=== PATIENT | female | born 1985 | race Caucasian/White ===

== ENCOUNTER 2020-04-18 01:54 | Emergency (ER) | payer SELFPAY ==
--- NOTE | 2020-04-18 03:13 | ER ---
Nurse's Notes [facility] Name: Gauri He Age: 35 yrs Sex: Female : 1985 Arrival Date: 04/18/2020 Time: 01:54 Bed 17 Private MD: Diagnosis: Fungal rash ( Chest, right breast, pelvis, buttocks ) Presentation: 04/18 01:54 Chief complaint: EMS states: PT has a rash that has been going on for over a year. has jb4 been advised to see a radiology technician, but reports being unable to afford it. Tonight the pt reports that the itching has gotten worse. 01:54 Coronavirus screen: Client denies travel out of the [place] in the last 14 days. At this jb4 time, the client does not indicate any symptoms associated with coronavirus-19. Ebola Screen: Patient negative for fever greater than or equal to 101.5 degrees Fahrenheit, and additional compatible Ebola Virus Disease symptoms No symptoms or risks identified at this time. Initial Sepsis Screen: Does the patient meet any 2 criteria? No. Patient's initial sepsis screen is negative. Does the patient have a suspected source of infection? No. Patient's initial sepsis screen is negative. Risk Assessment: Do you want to hurt yourself or someone else? Patient reports no desire to harm self or others. Onset of symptoms was May 15, 2018. 01:54 [facility] 01:[facility] Acuity: ALYSSA 4 jb4 Historical: - Allergies: 01:54 No Known Allergies; jb4 - Home Meds: 01:54 Xanax Oral [Active]; jb4 - PMHx: 01:54 Anxiety; jb4 - PSHx: 01:54 ; jb4 - Immunization history:: Adult Immunizations up to date. - Social history:: Smoking status: Patient reports the use of cigarette tobacco products, smokes one pack cigarettes per day. Patient uses street drugs, marijuana, Patient/guardian denies using alcohol. Screenin:54 Abuse screen: Denies threats or abuse. Nutritional screening: No deficits noted. jb4 Tuberculosis screening: No symptoms or risk factors identified. Fall Risk None identified. Assessment: 01:54 General: Appears in no apparent distress. comfortable, Behavior is calm, cooperative, jb4 appropriate for age. Pain: Complains of pain in buttocks Pain does not radiate. Pain currently is 5 out of 10 on a pain scale. Quality of pain is described as burning. Neuro: Level of Consciousness is awake, alert, obeys commands, Oriented to person, place, time, situation. Cardiovascular: Patient's skin is warm and dry. Respiratory: Airway is patent Respiratory effort is even, unlabored, Respiratory pattern is regular, symmetrical. GI: No signs and/or symptoms were reported involving the gastrointestinal system. : No signs and/or symptoms were reported regarding the genitourinary system. EENT: No signs and/or symptoms were reported regarding the EENT system. Derm: Skin is intact, Skin is pink, warm \T\ dry. Rash noted that is itchy, on right breast and pelvis. Musculoskeletal: Circulation, motion, and sensation intact. Range of motion: intact in all extremities. 03:24 Reassessment: Patient appears in no apparent distress at this time. Patient and/or jb4 family updated on plan of care and expected duration. Pain level reassessed. Patient is alert, oriented x 3, equal unlabored respirations, skin warm/dry/pink. Vital Signs: 01:54 BP 104 / 56; Pulse 92; Resp 16; Temp 97.8(O); Pulse Ox 100% on R/A; Weight 66.22 kg jb4 (R); Height 5 ft. 3 in. (160.02 cm); Pain 5/10; 03:24 BP 96 / 68; Pulse 90; Resp 16; Pulse Ox 98% on R/A; jb4 01:54 Body Mass Index 25.86 (66.22 kg, 160.02 cm) jb4 ED Course: 01:54 Patient arrived in ED. cl3 01:54 Patient has correct armband on for positive identification. Bed in low position. Call jb4 light in reach. Side rails up X 1. Pulse ox on. NIBP on. 01:58 Arm band placed on. sg 02:13 Jerman Tran MD is Attending Physician. pkl 02:18 Bobby Dykes, DIPIKA is Primary Nurse. jb4 02:22 Triage completed. jb4 03:24 No provider procedures requiring assistance completed. Patient did not have IV access jb4 during this emergency room visit. Administered Medications: 03:14 Drug: Motrin 600 mg Route: PO; jb4 03:24 Follow up: Response: No adverse reaction jb4 03:15 Drug: Benadryl 50 mg Route: PO; jb4 03:24 Follow up: Response: No adverse reaction jb4 03:15 Drug: Tylenol 650 mg Route: PO; jb4 03:24 Follow up: Response: No adverse reaction jb4 Outcome: 03:13 Discharge ordered by . kiara 03:24 Discharged to home ambulatory. jb4 03:24 Condition: stable 03:24 Discharge instructions given to patient, Instructed on discharge instructions, follow up and referral plans. medication usage, Demonstrated understanding of instructions, follow-up care, medications, Prescriptions given X 1. 03:25 Patient left the ED. jb4 Signatures: Kolby Najera RN RN sg Lam, Pin, MD MD pkl Bryson, James, RN RN jb4 Bharath Jain cl3
--- NOTE | 2020-04-18 03:13 | EDPHYS ---
Physician Documentation [facility] Name: Gauri He Age: 35 yrs Sex: Female : 1985 Arrival Date: 04/18/2020 Time: 01:54 Bed 17 Private MD: ED Physician Jerman Tran HPI: 04/18 03:06 This 39 yrs old Female presents to ER via EMS with complaints of Skin Problem. pkl 03:06 The rash is located on the pelvis and chest and right breast and buttocks. The rash can pkl be described as patchy. Onset: The symptoms/episode began/occurred 6 month(s) ago. Associated signs and symptoms: Pertinent positives: itching. Historical: - Allergies: :54 No Known Allergies; jb4 - Home Meds: :54 Xanax Oral [Active]; jb4 - PMHx: :54 Anxiety; jb4 - PSHx: 01:54 ; jb4 - Immunization history:: Adult Immunizations up to date. - Social history:: Smoking status: Patient reports the use of cigarette tobacco products, smokes one pack cigarettes per day. Patient uses street drugs, marijuana, Patient/guardian denies using alcohol. ROS: 03:06 Eyes: Negative for injury, pain, redness, and discharge, ENT: Negative for injury, pkl pain, and discharge, Neck: Negative for injury, pain, and swelling, Cardiovascular: Negative for chest pain, palpitations, and edema, Respiratory: Negative for shortness of breath, cough, wheezing, and pleuritic chest pain, Abdomen/GI: Negative for abdominal pain, nausea, vomiting, diarrhea, and constipation, Back: Negative for injury and pain, : Negative for injury, bleeding, discharge, and swelling, MS/Extremity: Negative for injury and deformity. 03:06 Skin: Positive for rash, of the pelvis and chest and right breast and buttocks. 03:06 Neuro: Negative for altered mental status, loss of consciousness. Exam: 03:06 Head/Face: Normocephalic, atraumatic. Eyes: Pupils equal round and reactive to light, pkl extra-ocular motions intact. Lids and lashes normal. Conjunctiva and sclera are non-icteric and not injected. Cornea within normal limits. Periorbital areas with no swelling, redness, or edema. ENT: Nares patent. No nasal discharge, no septal abnormalities noted. Tympanic membranes are normal and external auditory canals are clear. Oropharynx with no redness, swelling, or masses, exudates, or evidence of obstruction, uvula midline. Mucous membranes moist. Neck: Trachea midline, no thyromegaly or masses palpated, and no cervical lymphadenopathy. Supple, full range of motion without nuchal rigidity, or vertebral point tenderness. No Meningismus. Chest/axilla: Normal chest wall appearance and motion. Nontender with no deformity. No lesions are appreciated. Cardiovascular: Regular rate and rhythm with a normal S1 and S2. No gallops, murmurs, or rubs. Normal PMI, no JVD. No pulse deficits. Respiratory: Lungs have equal breath sounds bilaterally, clear to auscultation and percussion. No rales, rhonchi or wheezes noted. No increased work of breathing, no retractions or nasal flaring. Abdomen/GI: Soft, non-tender, with normal bowel sounds. No distension or tympany. No guarding or rebound. No evidence of tenderness throughout. Back: No spinal tenderness. No costovertebral tenderness. Full range of motion. MS/ Extremity: Pulses equal, no cyanosis. Neurovascular intact. Full, normal range of motion. Neuro: Awake and alert, GCS 15, oriented to person, place, time, and situation. Cranial nerves II-XII grossly intact. Motor strength 5/5 in all extremities. Sensory grossly intact. Cerebellar exam normal. Normal gait. 03:06 Skin: rash can be described as excoriated, patchy, on the pelvis and chest and right breast and buttocks. Vital Signs: 01:54 BP 104 / 56; Pulse 92; Resp 16; Temp 97.8(O); Pulse Ox 100% on R/A; Weight 66.22 kg jb4 (R); Height 5 ft. 3 in. (160.02 cm); Pain 5/10; 03:24 BP 96 / 68; Pulse 90; Resp 16; Pulse Ox 98% on R/A; jb4 01:54 Body Mass Index 25.86 (66.22 kg, 160.02 cm) jb4 MDM: 02:13 Patient medically screened. pkl 03:06 Data reviewed: vital signs, nurses notes. pkl Administered Medications: 03:14 Drug: Motrin 600 mg Route: PO; jb4 03:24 Follow up: Response: No adverse reaction jb4 03:15 Drug: Benadryl 50 mg Route: PO; jb4 03:24 Follow up: Response: No adverse reaction jb4 03:15 Drug: Tylenol 650 mg Route: PO; jb4 03:24 Follow up: Response: No adverse reaction jb4 Disposition: 04/18/20 03:13 Discharged to Home. Impression: Fungal rash ( Chest, right breast, pelvis, buttocks ). - Condition is Stable. - Medication Reconciliation Form, Thank You Letter, Antibiotic Education, Prescription Opioid Use form. - Follow up: Private Physician; When: 1 week; Reason: Re-evaluation by your physician. - Problem is chronic. - Symptoms have worsened. Signatures: Jerman Tran MD MD pkl Bobby Dykes RN RN jb4 Corrections: (The following items were deleted from the chart) 03:25 03:13 04/18/2020 03:13 Discharged to Home. Impression: Fungal rash ( Chest, right jb4 breast, pelvis, buttocks ). Condition is Stable. Forms are Medication Reconciliation Form, Thank You Letter, Antibiotic Education, Prescription Opioid Use. Follow up: Private Physician; When: 1 week; Reason: Re-evaluation by your physician. Problem is chronic. Symptoms have worsened. pkl
[2020-04-18] MEDS ORDERED: DIPHENHYDRAMINE 25 MG TAB/CAP ONE (03:21)
[2020-04-18] MEDS ORDERED: ACETAMINOPHEN 325 MG TABLET ONE (03:21)
[2020-04-18] MEDS ORDERED: IBUPROFEN 200 MG TAB PO ONE (03:21)
[2020-04-23 00:28] VITALS: TEMP 97.8
[2020-04-23 00:29] VITALS: BP 96/68; O2SAT 98
== END 2020-04-18 03:25 | disposition home or self-care (01) ==
LOC: EDBD 01:54 → ER 01:54
DX: B36.9 Superficial mycosis, unspecified (principal); F41.9 Anxiety disorder, unspecified; F17.210 Nicotine dependence, cigarettes, uncomplicated
CPT/HCPCS: 99284